=== PATIENT | female | born 1930 | race African-American/Black ===

== ENCOUNTER 2016-05-09 15:22 | Inpatient (IN) | payer MEDICARE ==
[~2016-05-09] VITALS: Ht 165.1 cm; Wt 68.1 kg
[2016-05-09] MEDS ORDERED: LABETALOL 20 MG/4 ML DISP.SYRIN. IVP ONE (15:45)
[2016-05-09] MEDS ORDERED: IV NORMAL SALINE 500ML BAG 500 ML IV ONE (15:45)
[2016-05-09] MEDS ORDERED: ACETAMINOPHEN 325 MG TABLET. PO ONE (15:45)
[2016-05-09] MEDS ORDERED: CEFTRIAXONE 1GM IVPB FOR OMNI 50 ML IV ONE (16:00)
--- NOTE | 2016-05-09 16:13 | PHYS DOC ---
Past Medical History Past Medical History: Anxiety, Cancer, Dementia, High Cholesterol, Hypertension , Hypothyroid, UTI, Other Additional Past Medical Histor: breast ca Past Surgical History: Cancer Surgery, Other Additional Past Surgical Histo: LUMPECTOMY. PT IS POOR HISTORIAN, PT SON UNSURE OF OTHER SURGERIES Alcohol Use: Sober Drug Use: Other Social History Narrative: UNKNOWN Adult General Chief Complaint Chief Complaint: MECHANICAL FALL HPI HPI 85-year-old female presenting to the emergency department today after the son called paramedics. He reports last talking with his mother approximately on Tuesday when she was oriented and speaking coherently. He was unable to get ahold of her on Tuesday however which is unusual. Paramedics were called to her house today where they found her on the ground in the living room. She is currently confused. She is unable to provide any further history. Onset 2 days Location generally Duration intermittent No alleviating factors. No specific timing. Review of Systems Review of Systems ROS negative for chest pain shortness of breath abdominal pain nausea or vomiting. All other review of systems is negative unless otherwise noted in history of present illness. Current Medications Current Medications Current Medications Medications (Trade) Dose Ordered Sig/Angela Start Time Stop Time Status Last Admin Dose Admin Acetaminophen 650 mg 650 mg 1X ONCE 05/09/16 15:45 05/09/16 15:46 DC 05/09/16 16:45 650 MG Ceftriaxone Sodium (Rocephin 1gm Ivpb For Omni) 50 ml @ 100 mls/hr 1X ONCE 05/09/16 16:00 05/09/16 16:29 DC 05/09/16 16:45 100 MLS/HR Labetalol HCl (Normodyne) 10 mg 1X ONCE 05/09/16 15:45 05/09/16 15:46 DC 05/09/16 16:45 10 MG Sodium Chloride (Iv Sodium Chloride 0.9% 500ml Bag) 500 ml @ 500 mls/hr 1X ONCE 05/09/16 15:45 05/09/16 16:44 DC 05/09/16 16:46 500 MLS/HR Allergies Allergies Allergies Coded Allergies Type Severity Reaction Last Updated Verified No Known Drug Allergies 05/09/16 No Physical Exam Physical Exam Patient is febrile and tachycardic with increased respiratory rate and hypertension. Constitutional: Well developed, well nourished, patient is breathing comfortably and resting comfortably in exam room. Not in any distress. HENT: Normocephalic, atraumatic, bilateral external ears normal, oropharynx moist, no oral exudates, nose normal. Negative Kernig sign. Negative Brudzinski's sign. Eyes: PERRLA, EOMI, conjunctiva normal, no discharge. [] Neck: Normal range of motion, no tenderness, supple, no stridor. No neck stiffness present. Cardiovascular:Heart rate regular rhythm, no murmur [] Lungs & Thorax: Bilateral breath sounds clear to auscultation Abdomen: Soft and nontender to palpation. Negative McBurney's point. Negative Cage sign. No rebound tenderness or guarding present. Nondistended. Skin: Warm, dry, no erythema, no rash. Back: No tenderness, no CVA tenderness. [] Extremities: No tenderness, no cyanosis, no clubbing, ROM intact, no edema. Neurologic: Alert and oriented to person. normal motor function, normal sensory function, no focal deficits noted. Psychologic: Affect normal, judgement normal, mood normal. [] Current Patient Data Vital Signs Vital Signs Date Time Temp Pulse Resp B/P Pulse Ox O2 Delivery O2 Flow Rate FiO2 05/09/16 16:45 109 209/81 05/09/16 16:30 39 94 05/09/16 15:28 102.2 Room Air 102.2 Lab Values Laboratory Tests Test 05/09/16 16:40 White Blood Count 8.2x10^3/uL (4.0-11.0) Red Blood Count 3.91x10^6/uL (3.50-5.40) Hemoglobin 11.8g/dL (12.0-15.5) L Hematocrit 35.6% (36.0-47.0) L Mean Corpuscular Volume 91fL (79-100) Mean Corpuscular Hemoglobin 30pg (25-35) Mean Corpuscular Hemoglobin Concent 33g/dL (31-37) Red Cell Distribution Width 14.4% (11.5-14.5) Platelet Count 199x10^3/uL (140-400) Neutrophils (%) (Auto) 87% (31-73) H Lymphocytes (%) (Auto) 4% (24-48) L Monocytes (%) (Auto) 8% (0-9) Eosinophils (%) (Auto) 0% (0-3) Basophils (%) (Auto) 0% (0-3) Neutrophils # (Auto) 7.2x10^3uL (1.8-7.7) Lymphocytes # (Auto) 0.3x10^3/uL (1.0-4.8) L Monocytes # (Auto) 0.7x10^3/uL (0.0-1.1) Eosinophils # (Auto) 0.0x10^3/uL (0.0-0.7) Basophils # (Auto) 0.0x10^3/uL (0.0-0.2) Segmented Neutrophils % 82% (35-66) H Band Neutrophils % 3% (0-9) Lymphocytes % 5% (24-48) L Monocytes % 10% (0-10) Toxic Granulation Slight Toxic Vacuolation Slight Platelet Estimate Adequate (ADEQUATE) Hypochromasia Slight Poikilocytosis Slight Anisocytosis Slight Sodium Level 131mmol/L (136-145) L Potassium Level 3.4mmol/L (3.5-5.1) L Chloride Level 92mmol/L (98-107) L Carbon Dioxide Level 30mmol/L (21-32) Anion Gap 9 (6-14) Blood Urea Nitrogen 8mg/dL (7-20) Creatinine 1.0mg/dL (0.6-1.0) Estimated GFR (Cockcroft-Gault) 63.9 Glucose Level 128mg/dL (70-99) H Lactic Acid Level 2.1mmol/L (0.4-2.0) H Calcium Level 9.1mg/dL (8.5-10.1) Total Bilirubin 0.9mg/dL (0.2-1.0) Direct Bilirubin 0.2mg/dL (0.0-0.2) Aspartate Amino Transferase (AST) 61U/L (15-37) H Alanine Aminotransferase (ALT) 30U/L (14-59) Alkaline Phosphatase 53U/L (46-116) Creatine Kinase 1636U/L (26-192) H Troponin I Quantitative 0.088ng/mL (0.000-0.055) UQ-Rld-W-Type Natriuretic Peptide 247pg/mL (0-449) Total Protein 8.6g/dL (6.4-8.2) H Albumin 4.2g/dL (3.4-5.0) Lipase 88U/L (73-393) Laboratory Tests 05/09/16 16:40 Laboratory Tests 05/09/16 16:40 EKG EKG [] EKG shows lots of artifact. Difficult to appreciate P-wave. Patient is tachycardic. [place] is within normal limits. ST segments are congruent. Radiology/Procedures Radiology/Procedures [] Chest x-ray unremarkable. Head neck CT unremarkable. Course & Med Decision Making Course & Med Decision Making Pertinent Labs and Imaging studies reviewed. (See chart for details) 85-year-old female presenting to the emergency department today after paramedics were called to her house by her son who is concerned for her. She was confused on evaluation with a fever and tachycardia with history of urinary tract infections. Initial presumption was confusion from urinary tract infection. IV fluids, acetaminophen, and antibiotics ordered. Blood cultures obtained. Antihypertensive medications ordered. Physical exam was otherwise unremarkable. Clinical exam not suggestive of meningitis. No neck stiffness. No petechiae on lower extremities. Labs mild anemia on CBC. White blood cell count within normal limits. Urinalysis not suggestive of infection. Positive for hematuria. Chemistry panel shows mild hypokalemia with an elevated creatinine kinase. Lactic acid elevated at 2. Troponin elevated at 0.08. They she was given aspirin in the emergency department along with IV fluid administration. IV labetalol given for hypertension. Acetaminophen for fever. The patient also received Rocephin, vancomycin and Zosyn. The patient was then admitted to our hospitalist team for further evaluation workup and care. Dragon Disclaimer Dragon Disclaimer This electronic medical record was generated, in whole or in part, using a voice recognition dictation system. Departure Departure Impression: Primary Impression: Severe sepsis Additional Impressions: Confusion Fever Tachycardia Disposition: ADMITTED INPATIENT Admitting Physician: Tres Patel Condition: IMPROVED Referrals: NO PCP (PCP) Problem Qualifiers MELY MINER MD May 09, 2016 16:13
--- NOTE | 2016-05-09 16:33 | RAD ---
One or more of the following individualized dose reduction techniques were utilized for this examination: 1. Automated exposure control 2. Adjustment of the mA and/or kV according to patient size 3. Use of iterative reconstruction technique CT brain without contrast, CT cervical spine without contrast. History: Fall today, poor historian CT scan of the brain was done without contrast. There is motion artifact. There is no intracranial hemorrhage or subdural hematoma. Ventricles are normal in size. There is no mass or shift of the midline. An acute CVA is not identified. A skull fracture is not identified. Sinuses are clear. Impression: 1. Motion artifact limits the study. 2. No intracranial hemorrhage or acute finding. End impression CT cervical spine Axial CT images were obtained through the cervical spine. A fracture is not identified. C-spine is in normal alignment. There is mild hypertrophic spurring. Odontoid is intact. Impression: 1. No acute fracture noted in the cervical spine.
--- NOTE | 2016-05-09 16:34 | RAD ---
AP chest. History: Fatigue AP view was taken of the chest. The thoracic aorta is mildly enlarged and tortuous. Heart is upper normal in size. There are no confluent areas of infiltrate. There is no pneumothorax or pleural effusion. Impression: 1. No acute chest disease.
--- NOTE | 2016-05-09 16:41 | EKG ---
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
[2016-05-09 16:49] LABS: BASO % 0 % (0-3); EOS % 0 % (0-3); HEMATOCRIT 35.6 % (36.0-47.0); HEMOGLOBIN 11.8 g/dL (12.0-15.5); LYMPH # 0.3 x10^3/uL (1.0-4.8); LYMPH % 4 % (24-48); MEAN CORPUSCULAR HEMOGLOBIN 30 pg (25-35); MEAN CORPUSCULAR HGB CONC 33 g/dL (31-37); MEAN CORPUSCULAR VOLUME 91 fL (79-100); MONO % 8 % (0-9); NEUT % 87 % (31-73); PLATELET COUNT 199 x10^3/uL (140-400); RED BLOOD COUNT 3.91 x10^6/uL (3.50-5.40); RED CELL DISTRIBUTION WIDTH 14.4 % (11.5-14.5); WHITE BLOOD COUNT 8.2 x10^3/uL (4.0-11.0)
[2016-05-09] MEDS ORDERED: IV NORMAL SALINE 500ML BAG 500 ML IV PRN (17:00)
[2016-05-09] MEDS ORDERED: ONDANSETRON PF 4 MG/2 ML VIAL. IV PRN (17:00)
[2016-05-09] MEDS ORDERED: MORPHINE SULFATE 2 MG/ML DISP.SYRIN. IV PRN (17:00)
[2016-05-09 17:02] LABS: CALCIUM 9.1 mg/dL (8.5-10.1); GFR 63.9; POTASSIUM 3.4 mmol/L (3.5-5.1)
[2016-05-09 17:07] LABS: ALBUMIN 4.2 g/dL (3.4-5.0); DIRECT BILIRUBIN 0.2 mg/dL (0.0-0.2); TOTAL BILIRUBIN 0.9 mg/dL (0.2-1.0); TOTAL PROTEIN 8.6 g/dL (6.4-8.2)
[2016-05-09 17:14] LABS: BILIRUBIN,URINE NEGATIVE (NEG); GLUCOSE,URINE NEGATIVE (NEG); NITRITE,URINE NEGATIVE (NEG); PH,URINE 6.5
[2016-05-09 17:26] LABS: BACTERIA,URINE FEW /HPF (0-FEW); PROTEIN,URINE TRACE mg/dL (NEG-TRACE); RBC,URINE 20-40 /HPF (0-2); SQUAMOUS EPITHELIAL CELL,UR FEW /LPF
[2016-05-09] MEDS: IV NORMAL SALINE 1000ML BAG 1,000 ML IV SCH ×3 (17:31→20:31)
[2016-05-09 18:11] LABS: ANISOCYTOSIS SLIGHT; HYPOCHROMIA SLIGHT; PLT ESTIMATE ADEQUATE (ADEQUATE); POIKILOCYTOSIS SLIGHT; TOXIC GRANULATION SLIGHT; TOXIC VACUOLATION SLIGHT
[2016-05-09] MEDS ORDERED: ASPIRIN 81 MG TAB.CHEW PO ONE (18:30)
[2016-05-09] MEDS ORDERED: PIP/TAZO PER PHARMACY MC PRN (19:00)
[2016-05-09] MEDS: VANCOMYCIN PER PHARMACY MC PRN ×2 (19:23→20:40)
[2016-05-09] MEDS ORDERED: VANCOMYCIN 1.75 GM in IV NORMAL SALINE 500ML BAG 500 ML IV ONE (19:30)
[2016-05-09] MEDS ORDERED: POTA99TA2 PO (22:06)
[2016-05-09] MEDS ORDERED: ATOR20TA58 PO (22:08)
[2016-05-09] MEDS ORDERED: ALPR0.5T6 PO (22:08)
[2016-05-09] MEDS ORDERED: LEVO50TA5 PO (22:08)
[2016-05-09] MEDS ORDERED: DONE5TAB33 PO (22:08)
[2016-05-09] MEDS ORDERED: LISI1TAB5 PO (22:08)
[2016-05-09] MEDS: PIPERACILLIN/TAZOBACTAM 3.375 GM in IV NORMAL SALINE 50ML 50 ML IV SCH (22:43)
[2016-05-09] MEDS ORDERED: ATORVASTATIN CALCIUM 20 MG TABLET PO SCH (23:00)
[2016-05-09] MEDS ORDERED: ALPRAZOLAM 0.5 MG TABLET PO SCH (23:00)
[2016-05-09] MEDS ORDERED: DONEPEZIL HCL 5 MG TABLET. PO SCH (23:00)
[2016-05-09 23:20] VITALS: BP 132/76
[2016-05-10 03:40] VITALS: BP 151/70
[2016-05-10 04:53] LABS: BASO % 0 % (0-3); EOS % 0 % (0-3); HEMATOCRIT 33.4 % (36.0-47.0); HEMOGLOBIN 10.9 g/dL (12.0-15.5); LYMPH # 0.4 x10^3/uL (1.0-4.8); LYMPH % 9 % (24-48); MEAN CORPUSCULAR HEMOGLOBIN 30 pg (25-35); MEAN CORPUSCULAR HGB CONC 33 g/dL (31-37); MEAN CORPUSCULAR VOLUME 91 fL (79-100); MONO % 11 % (0-9); NEUT % 80 % (31-73); PLATELET COUNT 188 x10^3/uL (140-400); RED BLOOD COUNT 3.67 x10^6/uL (3.50-5.40); RED CELL DISTRIBUTION WIDTH 14.2 % (11.5-14.5); WHITE BLOOD COUNT 4.9 x10^3/uL (4.0-11.0)
[2016-05-10 05:23] LABS: CALCIUM 7.9 mg/dL (8.5-10.1); CREATININE 0.9 mg/dL (0.6-1.0); GFR 72.2
[2016-05-10] MEDS: PIPERACILLIN/TAZOBACTAM 3.375 GM in IV NORMAL SALINE 50ML 50 ML IV SCH ×3 (06:00→18:00)
[2016-05-10] MEDS ORDERED: LEVOTHYROXINE 50 MCG TABLET PO SCH (07:00)
[2016-05-10 07:25] VITALS: BP 119/63
[2016-05-10] MEDS: LISINOPRIL 20 MG TABLET PO SCH (09:07)
[2016-05-10] MEDS: HYDROCHLOROTHIAZIDE 12.5 MG CAPSULE. PO SCH (09:08)
[2016-05-10 10:49] VITALS: BP 130/67
[2016-05-10 13:43] LABS: OBC FLU VALID
[2016-05-10] MEDS ORDERED: POTASSIUM CHLORIDE 20 MEQ TABLET.ER. PO ONE (14:45)
[2016-05-10] MEDS: VANCOMYCIN PER PHARMACY MC PRN (14:45)
[2016-05-10] MEDS: LEVOTHYROXINE 50 MCG TABLET PO SCH (15:00)
--- NOTE | 2016-05-10 15:21 | PDOC2 ---
CARDIAC CONSULT DATE OF CONSULT Date of Consult DATE: 05/10/16 TIME: 15:21 REASON FOR CONSULT Reason for Consult: high troponin likely due to muscle damage REFERRING PHYSICIAN Referring Physician: Dr. Tres Patel SOURCE Source: Caregiver (son), Chart review, Patient (who is a poor historian) HISTORY OF PRESENT ILLNESS HISTORY OF PRESENT ILLNESS 85 year old female admitted through the ER after being found down for unknown duration. Reportedly oriented on Tuesday and presented to ER confused. Initial troponin was 0.088 with CK of 1636 and NT-proBNP of 247. Presented with hypokalemia @ 3.4 and then 3.0 earlier today. Patient denies chest pain, dyspnea , palpitations, dizziness or lightheadedness. EKG with ST and poor baseline; no clear acute changes. Reason for Visit: elevated troponin PAST MEDICAL HISTORY Cardiovascular: HTN, [place] (30 years ago), Hyperlipidemia CENTRAL NERVOUS SYSTEM: Dementia Heme/Onc: Cancer (breast; with lumpectomy) Psych: Anxiety Endocrine: Hypothyroidism PAST SURGICAL HISTORY Past Surgical History: Other (lumpectomy; otherwise unknown) FAMILY HISTORY Family History: Family History Unknown SOCIAL HISTORY Smoke: No ALCOHOL: none Drugs: None Lives: Alone CURRENT MEDICATIONS CURRENT MEDICATIONS Current Medications Medications (Trade) Dose Ordered Sig/Angela Route PRN Reason Start Time Stop Time Status Last Admin Dose Admin Sodium Chloride (Iv Sodium Chloride 0.9% 500ml Bag) 500 ml @ 500 mls/hr 1X ONCE IV 05/09/16 15:45 05/09/16 16:44 DC 05/09/16 16:46 Labetalol HCl (Normodyne) 10 mg 1X ONCE IVP 05/09/16 15:45 05/09/16 15:46 DC 05/09/16 16:45 Acetaminophen 650 mg 650 mg 1X ONCE PO 05/09/16 15:45 05/09/16 15:46 DC 05/09/16 16:45 Ceftriaxone Sodium 50 ml @ 100 mls/hr 1X ONCE IV 05/09/16 16:00 05/09/16 16:29 DC 05/09/16 16:45 Sodium Chloride (Iv Sodium Chloride 0.9% 1000ml Bag) 1,000 ml @ 547.5 mls/ hr Q1H50M IV 05/09/16 16:51 05/09/16 20:51 DC 05/09/16 17:31 Vancomycin HCl (Vanco Per Pharmacy) 1 each PRN DAILY PRN MC SEE COMMENTS 05/09/16 19:00 05/10/16 14:45 Piperacillin Sod/ Tazobactam Sod 1 each 1 each PRN DAILY PRN MC SEE COMMENTS 05/09/16 19:00 05/09/16 20:07 Vancomycin HCl 1.75 gm/Sodium Chloride 500 ml @ 250 mls/hr 1X ONCE IV 05/09/16 19:30 05/09/16 21:29 DC 05/09/16 20:07 Piperacillin Sod/ Tazobactam Sod/ Sodium Chloride (Zosyn/Iv Sodium Chloride 0.9% 50ml) 50 ml @ 100 mls/hr Q6HRS IV 05/09/16 22:00 05/10/16 12:47 Levothyroxine Sodium (Synthroid) 50 mcg DAILY07 PO 05/10/16 07:00 05/10/16 14:35 DC 05/10/16 06:00 Lisinopril (Prinivil) 20 mg DAILY PO 05/10/16 09:00 05/10/16 09:07 Hydrochlorothiazide (Microzide) 12.5 mg DAILY PO 05/10/16 09:00 05/10/16 09:08 ALLERGIES ALLERGIES: Coded Allergies: No Known Drug Allergies (Unverified , 05/09/16) ROS General: No: Appetite, Chills, Fatigue, Malaise, Night Sweats, Other PSYCHOLOGICAL ROS: YES: Anxiety Eyes: No Blurry vision, No Decreased vision, No Double vision, No Dry eyes, No Excessive tearing, No Eye Pain, No Itchy Eyes, No Loss of vision, No Other, No Photophobia, No Scotomata, No Uses contacts, No Uses glasses HEENT: No: Epistaxis, Heacaches, Hearing change, Nasal congestion, Nasal discharge, Oral lesions, Other, Sinus pain, Sneezing, Snoring, Sore Throat, Tinnitus, Vertigo, Visual Changes, Vocal changes ALLERGY AND IMMUNOLOGY: No: Hives, Insect Bite Sensitivity, Itchy/Watery Eyes, Nasal Congestion, Other, Post Nasal Drip, Seasonal Allergies Hematological and Lymphatic: No: Bleeding Problems, Blood Clots, Blood Transfusions, Brusing, Night Sweats, Other, Pallor, Swollen Lymph Nodes ENDOCRINE: No: Breast Changes, Galactorrhea, Hair Pattern Changes, Hot Flashes , Malaise/lethargy, Mood Swings, Other, Palpitations, Polydipsia/polyuria, Skin Changes, Temperature Intolerance, Unexpected Weight Changes Respiratory: No: Cough, Hemoptysis, Orthopnea, Other, Pleuritic Pain, SOB with excertion, Shortness of breath, Sputum Changes, Stridor, Tachypnea, Wheezing Cardiovascular: No Chest Pain, No Edema, No Lt Headedness, No Orthopnea, No Other, No Palpitations, No Paroxysmal Noc. Dyspnea Gastrointestinal: No Abdominal Pain, No Constipation, No Diarrhea, No Hematochezia, No Melena, No Nausea, No Other, No Vomiting Genitourinary: No Discharge, No Dysuria, No Flank Pain, No Frequency, No Hematuria, No Incontinence, No Other, No Pain, No Retention, No Urgency Musculoskeletal: No Gait Disturbance, No Joint Pain, No Joint Stiffness, No Joint Swelling, No Muscle Pain, No Muscular Weakness, No Other, No Pain In:, No Swelling In: Neurological: No Behavorial Changes, No Bowel/Bladder ControlChng, No Confusion , No Dizziness, No Gait Disturbance, No Headaches, No Impaired Coord/balance, No Memory Loss, No Numbness/Tingling, No Other, No Seizures, No Speech Problems , No Tremors, No Visual Changes, No Weakness Skin: No Acne, No Dry Skin, No Eczema, No Hair Changes, No Lumps, No Mole Changes, No Mottling, No Nail Changes, No Other, No Pruritus, No Rash, No Skin Lesion Changes PHYSICAL EXAM General: Alert, Cooperative, No acute distress HEENT: Atraumatic, PERRLA Lungs: Clear to auscultation Heart: Regular rate, Normal S1, Normal S2, No murmurs, Other (no carotid bruits ) Abdomen: Normal bowel sounds, Soft, No tenderness Extremities: No edema, Normal pulses Skin: No rashes Neuro: Normal speech Psych/Mental Status: Mental status NL, Mood NL MUSCULOSKELETAL: Osteoarthritic changes both hands VITALS VITALS Vital Signs Date Time Temp Pulse Resp B/P Pulse Ox O2 Delivery O2 Flow Rate FiO2 05/10/16 10:49 99.0 86 18 130/67 95 Room Air 99.0 LABS Lab: Laboratory Tests Test 05/09/16 16:40 05/09/16 16:59 05/09/16 19:55 05/10/16 03:56 White Blood Count 8.2x10^3/uL (4.0-11.0) 4.9x10^3/uL (4.0-11.0) Red Blood Count 3.91x10^6/uL (3.50-5.40) 3.67x10^6/uL (3.50-5.40) Hemoglobin 11.8g/dL (12.0-15.5) 10.9g/dL (12.0-15.5) Hematocrit 35.6% (36.0-47.0) 33.4% (36.0-47.0) Mean Corpuscular Volume 91fL (79-100) 91fL (79-100) Mean Corpuscular Hemoglobin 30pg (25-35) 30pg (25-35) Mean Corpuscular Hemoglobin Concent 33g/dL (31-37) 33g/dL (31-37) Red Cell Distribution Width 14.4% (11.5-14.5) 14.2% (11.5-14.5) Platelet Count 199x10^3/uL (140-400) 188x10^3/uL (140-400) Neutrophils (%) (Auto) 87% (31-73) 80% (31-73) Lymphocytes (%) (Auto) 4% (24-48) 9% (24-48) Monocytes (%) (Auto) 8% (0-9) 11% (0-9) Eosinophils (%) (Auto) 0% (0-3) 0% (0-3) Basophils (%) (Auto) 0% (0-3) 0% (0-3) Neutrophils # (Auto) 7.2x10^3uL (1.8-7.7) 3.9x10^3uL (1.8-7.7) Lymphocytes # (Auto) 0.3x10^3/uL (1.0-4.8) 0.4x10^3/uL (1.0-4.8) Monocytes # (Auto) 0.7x10^3/uL (0.0-1.1) 0.5x10^3/uL (0.0-1.1) Eosinophils # (Auto) 0.0x10^3/uL (0.0-0.7) 0.0x10^3/uL (0.0-0.7) Basophils # (Auto) 0.0x10^3/uL (0.0-0.2) 0.0x10^3/uL (0.0-0.2) Segmented Neutrophils % 82% (35-66) Band Neutrophils % 3% (0-9) Lymphocytes % 5% (24-48) Monocytes % 10% (0-10) Toxic Granulation Slight Toxic Vacuolation Slight Platelet Estimate Adequate (ADEQUATE) Hypochromasia Slight Poikilocytosis Slight Anisocytosis Slight Sodium Level 131mmol/L (136-145) 134mmol/L (136-145) Potassium Level 3.4mmol/L (3.5-5.1) 3.0mmol/L (3.5-5.1) Chloride Level 92mmol/L (98-107) 98mmol/L (98-107) Carbon Dioxide Level 30mmol/L (21-32) 28mmol/L (21-32) Anion Gap 9 (6-14) 8 (6-14) Blood Urea Nitrogen 8mg/dL (7-20) 7mg/dL (7-20) Creatinine 1.0mg/dL (0.6-1.0) 0.9mg/dL (0.6-1.0) Estimated GFR (Cockcroft-Gault) 63.9 72.2 Glucose Level 128mg/dL (70-99) 112mg/dL (70-99) Lactic Acid Level 2.1mmol/L (0.4-2.0) 1.3mmol/L (0.4-2.0) Calcium Level 9.1mg/dL (8.5-10.1) 7.9mg/dL (8.5-10.1) Total Bilirubin 0.9mg/dL (0.2-1.0) Direct Bilirubin 0.2mg/dL (0.0-0.2) Aspartate Amino Transf (AST/SGOT) 61U/L (15-37) Alanine Aminotransferase (ALT/SGPT) 30U/L (14-59) Alkaline Phosphatase 53U/L (46-116) Creatine Kinase 1636U/L (26-192) Troponin I Quantitative 0.088ng/mL (0.000-0.055) CE-Amx-K-Type Natriuretic Peptide 247pg/mL (0-449) Total Protein 8.6g/dL (6.4-8.2) Albumin 4.2g/dL (3.4-5.0) Lipase 88U/L (73-393) Urine Collection Type U cath Urine Color Yellow Urine Clarity Cloudy Urine pH 6.5 Urine Specific [place] 1.020 Urine Protein Tracemg/dL (NEG-TRACE) Urine Glucose (UA) Negativemg/dL (NEG) Urine Ketones (Stick) 15mg/dL (NEG) Urine Blood Large (NEG) Urine Nitrite Negative (NEG) Urine Bilirubin Negative (NEG) Urine Urobilinogen Dipstick 1.0mg/dL (0.2 mg/dL) Urine Leukocyte Esterase Negative (NEG) Urine RBC 20-40/HPF (0-2) Urine WBC 5-10/HPF (0-4) Urine Squamous Epithelial Cells Few/LPF Urine Bacteria Few/HPF (0-FEW) Urine Hyaline Casts Moderate/HPF Urine Mucus Marked/LPF Test 05/10/16 12:55 Influenza Type A Antigen Positive (NEGATIVE) Influenza Type B Antigen Negative (NEGATIVE) IMAGES IMAGES CXR: AP view was taken of the chest. The thoracic aorta is mildly enlarged and tortuous. Heart is upper normal in size. There are no confluent areas of infiltrate. There is no pneumothorax or pleural effusion. Impression: 1. No acute chest disease. EKG EKG no acute changes; ST; poor baseline due to artifact ASSESSMENT/PLAN ASSESSMENT/PLAN 1. elevated troponin and CK level ? due to lying on floor for prolonged period will obtain serial enzymes and check myoglobin - remote history of [place] 30 years ago - ischemic heart disease remains a possible etiology echo to evaluate LV function and assess for WMA 2. fall vs syncope orthostatic measurements to evaluate 3. UTI/sepsis per primary service 4. influenza positive 5. HTN continue home meds 6. HLD continue home statin therapy 7. dementia per primary service Problems: KEENAN BAUTISTA OPTOMETRIC ASSISTANT May 10, 2016 15:21
[2016-05-10 15:26] VITALS: BP 151/78
[2016-05-10] MEDS: OSELTAMIVIR 30 MG CAPSULE PO SCH ×2 (15:49→21:10)
[2016-05-10] MEDS: POTASSIUM CL 20MEQ D5-0.45NACL 1,000 ML IV SCH (15:51)
[2016-05-10] MEDS: ACETAMINOPHEN 500 MG TABLET PO PRN (16:01)
--- NOTE | 2016-05-10 16:09 | PDOC ---
OBJECTIVE Vital Signs Vital Signs Date Time Temp Pulse Resp B/P Pulse Ox O2 Delivery O2 Flow Rate FiO2 05/10/16 15:26 101.0 92 18 151/78 94 Room Air 101.0 05/10/16 10:49 99.0 86 18 130/67 95 Room Air 99.0 05/10/16 09:07 87 119/63 05/10/16 08:08 Room Air 05/10/16 07:25 99.2 87 18 119/63 93 Room Air 99.2 05/10/16 03:40 98.8 94 22 151/70 95 Room Air 98.8 05/09/16 23:20 99.3 99 22 132/76 93 Room Air 99.3 05/09/16 19:30 Room Air 05/09/16 17:30 98 29 153/69 93 05/09/16 17:00 102 35 170/81 96 05/09/16 16:45 109 209/81 05/09/16 16:30 110 39 209/81 94 I & O Intake and Output 05/10/16 07:00 Intake Total 1323.8 ml Balance 1323.8 ml Intake Oral 200 ml IV Total 1123.8 ml # Voids 1 # Bowel Movements 1 ASSESSMENT/PLAN Assessment/Plan [id number] H&P dictated Problems: COMMENT Lab Laboratory Tests Test 05/09/16 16:40 05/09/16 16:59 05/09/16 19:55 05/10/16 03:56 White Blood Count 8.2x10^3/uL (4.0-11.0) 4.9x10^3/uL (4.0-11.0) Red Blood Count 3.91x10^6/uL (3.50-5.40) 3.67x10^6/uL (3.50-5.40) Hemoglobin 11.8g/dL (12.0-15.5) 10.9g/dL (12.0-15.5) Hematocrit 35.6% (36.0-47.0) 33.4% (36.0-47.0) Mean Corpuscular Volume 91fL (79-100) 91fL (79-100) Mean Corpuscular Hemoglobin 30pg (25-35) 30pg (25-35) Mean Corpuscular Hemoglobin Concent 33g/dL (31-37) 33g/dL (31-37) Red Cell Distribution Width 14.4% (11.5-14.5) 14.2% (11.5-14.5) Platelet Count 199x10^3/uL (140-400) 188x10^3/uL (140-400) Neutrophils (%) (Auto) 87% (31-73) 80% (31-73) Lymphocytes (%) (Auto) 4% (24-48) 9% (24-48) Monocytes (%) (Auto) 8% (0-9) 11% (0-9) Eosinophils (%) (Auto) 0% (0-3) 0% (0-3) Basophils (%) (Auto) 0% (0-3) 0% (0-3) Neutrophils # (Auto) 7.2x10^3uL (1.8-7.7) 3.9x10^3uL (1.8-7.7) Lymphocytes # (Auto) 0.3x10^3/uL (1.0-4.8) 0.4x10^3/uL (1.0-4.8) Monocytes # (Auto) 0.7x10^3/uL (0.0-1.1) 0.5x10^3/uL (0.0-1.1) Eosinophils # (Auto) 0.0x10^3/uL (0.0-0.7) 0.0x10^3/uL (0.0-0.7) Basophils # (Auto) 0.0x10^3/uL (0.0-0.2) 0.0x10^3/uL (0.0-0.2) Segmented Neutrophils % 82% (35-66) Band Neutrophils % 3% (0-9) Lymphocytes % 5% (24-48) Monocytes % 10% (0-10) Toxic Granulation Slight Toxic Vacuolation Slight Platelet Estimate Adequate (ADEQUATE) Hypochromasia Slight Poikilocytosis Slight Anisocytosis Slight Sodium Level 131mmol/L (136-145) 134mmol/L (136-145) Potassium Level 3.4mmol/L (3.5-5.1) 3.0mmol/L (3.5-5.1) Chloride Level 92mmol/L (98-107) 98mmol/L (98-107) Carbon Dioxide Level 30mmol/L (21-32) 28mmol/L (21-32) Anion Gap 9 (6-14) 8 (6-14) Blood Urea Nitrogen 8mg/dL (7-20) 7mg/dL (7-20) Creatinine 1.0mg/dL (0.6-1.0) 0.9mg/dL (0.6-1.0) Estimated GFR (Cockcroft-Gault) 63.9 72.2 Glucose Level 128mg/dL (70-99) 112mg/dL (70-99) Lactic Acid Level 2.1mmol/L (0.4-2.0) 1.3mmol/L (0.4-2.0) Calcium Level 9.1mg/dL (8.5-10.1) 7.9mg/dL (8.5-10.1) Total Bilirubin 0.9mg/dL (0.2-1.0) Direct Bilirubin 0.2mg/dL (0.0-0.2) Aspartate Amino Transf (AST/SGOT) 61U/L (15-37) Alanine Aminotransferase (ALT/SGPT) 30U/L (14-59) Alkaline Phosphatase 53U/L (46-116) Creatine Kinase 1636U/L (26-192) Troponin I Quantitative 0.088ng/mL (0.000-0.055) LP-Xby-M-Type Natriuretic Peptide 247pg/mL (0-449) Total Protein 8.6g/dL (6.4-8.2) Albumin 4.2g/dL (3.4-5.0) Lipase 88U/L (73-393) Urine Collection Type U cath Urine Color Yellow Urine Clarity Cloudy Urine pH 6.5 Urine Specific [place] 1.020 Urine Protein Tracemg/dL (NEG-TRACE) Urine Glucose (UA) Negativemg/dL (NEG) Urine Ketones (Stick) 15mg/dL (NEG) Urine Blood Large (NEG) Urine Nitrite Negative (NEG) Urine Bilirubin Negative (NEG) Urine Urobilinogen Dipstick 1.0mg/dL (0.2 mg/dL) Urine Leukocyte Esterase Negative (NEG) Urine RBC 20-40/HPF (0-2) Urine WBC 5-10/HPF (0-4) Urine Squamous Epithelial Cells Few/LPF Urine Bacteria Few/HPF (0-FEW) Urine Hyaline Casts Moderate/HPF Urine Mucus Marked/LPF Test 05/10/16 12:55 Influenza Type A Antigen Positive (NEGATIVE) Influenza Type B Antigen Negative (NEGATIVE) COLTON ACEVES MD May 10, 2016 16:09
[2016-05-10 16:51] LABS: MAGNESIUM 1.5 mg/dL (1.8-2.4)
[2016-05-10 19:45] VITALS: BP 122/69
[2016-05-10] MEDS ORDERED: DONEPEZIL HCL 5 MG TABLET. PO SCH (21:00)
[2016-05-10] MEDS ORDERED: ATORVASTATIN CALCIUM 20 MG TABLET PO SCH (21:00)
[2016-05-10] MEDS ORDERED: ALPRAZOLAM 0.5 MG TABLET PO SCH (21:00)
[2016-05-10] MEDS: VANCOMYCIN 1 GM in IV NORMAL SALINE 250ML 250 ML IV SCH (21:09)
[2016-05-10] MEDS: ALPRAZOLAM 0.5 MG TABLET PO SCH (21:10)
[2016-05-10] MEDS: ATORVASTATIN CALCIUM 20 MG TABLET PO SCH (21:10)
[2016-05-10] MEDS: DONEPEZIL HCL 5 MG TABLET. PO SCH (21:10)
[2016-05-10 23:35] VITALS: BP 141/75
[2016-05-11] MEDS: PIPERACILLIN/TAZOBACTAM 3.375 GM in IV NORMAL SALINE 50ML 50 ML IV SCH ×5 (00:04→23:46)
--- NOTE | 2016-05-11 01:50 | HP ---
ADMIT DATE: HISTORY OF PRESENT ILLNESS: The patient is an 85-year-old lady who presented to the Emergency Room when she was found on the floor after her son tried to contact her and was not able to contact her on Tuesday morning. He stated that he made a normal contact with her on Tuesday. The EMS were called and she was brought to the Emergency Room. She was on the ground in the living room and was confused. Her body temperature was low and she was not able to provide more history on her presentation. PAST MEDICAL HISTORY: Significant for Alzheimer's disease, dementia, hyperlipidemia, hypertension, history of benign breast lumps removed, previous history of UTI, osteoarthritis, hypothyroidism, anxiety. She also has had a history of breast cancer and previous history of lumpectomy. REVIEW OF SYSTEMS: She denies weight loss. Her body temperature was low upon her presentation to the Emergency Room. She denies abdominal pain, nausea, vomiting, diarrhea. She stated that she has not been feeling good and was rather poor historian upon her presentation. ALLERGIES: She has no known drug allergies. PHYSICAL EXAMINATION: GENERAL: She is alert and oriented, mildly tachycardic with increased respiratory rate and hypertension. CONSTITUTIONAL: She is in no acute distress. HEENT: Atraumatic. Pharynx is clear. Mucous membranes are dry. EYES: Without icterus or discharge. NECK: Supple. HEART: Mildly tachycardic. LUNGS: Fairly clear. ABDOMEN: Soft and nontender. SKIN: Warm and dry. BACK: She has no flank tenderness. EXTREMITIES: Without edema. NEUROLOGIC: She was alert, but slightly confused. No focal deficit was noted. IMPRESSION: 1. Sepsis, probably due to urinary tract infection. 2. Flu. 3. Confusion and metabolic encephalopathy due to infection. 4. Rhabdomyolysis due to fall and elevated CK. The patient will be hydrated. 5. Hypokalemia. 6. Fever and tachycardia. 7. Hyperlipidemia and hypertension. 8. Previous history of breast cancer. 9. Degenerative joint disease. 10. Hypothyroidism. PLAN: The patient is admitted, started on sepsis protocol, broad spectrum antibiotics. When her flu came back positive, she was also started on Tamiflu. Continue supportive treatment. COLTON ACEVES MD DR: BRYAN/marina JOB#: [id number] / [id number]
[2016-05-11 03:45] VITALS: BP 131/74
[2016-05-11 04:50] LABS: HEMATOCRIT 30.7 % (36.0-47.0); HEMOGLOBIN 10.1 g/dL (12.0-15.5); RED BLOOD COUNT 3.38 x10^6/uL (3.50-5.40); RED CELL DISTRIBUTION WIDTH 14.5 % (11.5-14.5); WHITE BLOOD COUNT 3.3 x10^3/uL (4.0-11.0)
[2016-05-11 05:03] LABS: ALBUMIN 2.9 g/dL (3.4-5.0); ALBUMIN/GLOBULIN RATIO 0.9 (1.0-1.7); CALCIUM 7.5 mg/dL (8.5-10.1); CREATININE 0.8 mg/dL (0.6-1.0); GFR 82.7; TOTAL BILIRUBIN 0.6 mg/dL (0.2-1.0)
[2016-05-11 05:32] LABS: CHOLESTEROL/HDL RATIO 1.9
[2016-05-11] MEDS: POTASSIUM CL 20MEQ D5-0.45NACL 1,000 ML IV SCH ×2 (05:50→22:46)
[2016-05-11] MEDS: LEVOTHYROXINE 50 MCG TABLET PO SCH (05:53)
[2016-05-11 07:50] VITALS: BP_SYST 113; BP_SYST 140; BP_SYST 148; BP_DIAS 67; BP_DIAS 82; BP_DIAS 91
[2016-05-11] MEDS: HYDROCHLOROTHIAZIDE 12.5 MG CAPSULE. PO SCH (08:59)
[2016-05-11] MEDS: OSELTAMIVIR 30 MG CAPSULE PO SCH ×2 (08:59→20:51)
[2016-05-11] MEDS: LISINOPRIL 20 MG TABLET PO SCH (08:59)
[2016-05-11] MEDS ORDERED: NON FORMULARY ITEM (Lisinopril/Hydrochlorothiazide (Lisinopril-Hctz 20-12.5 Mg Tab) 1 TAB) PO SCH (09:00)
[2016-05-11] MEDS ORDERED: NON FORMULARY ITEM (Potassium Gluconate 99 MG) PO SCH (09:00)
--- NOTE | 2016-05-11 09:06 | PDOC ---
SUBJECTIVE Subjective She does feel much better today, her appetite better she is pleasant and does not appear to be in any distress OBJECTIVE Objective Her temperature is trending down and her vital signs are stable Vital Signs Vital Signs Date Time Temp Pulse Resp B/P Pulse Ox O2 Delivery O2 Flow Rate FiO2 05/11/16 08:59 92 113/67 05/11/16 07:50 99.0 92 20 140/91 93 Room Air 99.0 148/82 113/67 05/11/16 07:45 Room Air 05/11/16 03:45 99.2 80 18 131/74 92 Room Air 99.2 05/10/16 23:35 100.4 81 20 141/75 93 Room Air 100.4 05/10/16 20:00 Room Air 05/10/16 19:45 100.6 60 22 122/69 96 Room Air 100.6 05/10/16 15:26 101.0 92 18 151/78 94 Room Air 101.0 05/10/16 10:49 99.0 86 18 130/67 95 Room Air 99.0 05/10/16 09:07 87 119/63 I & O Intake and Output 05/11/16 07:00 Intake Total 2650 ml Balance 2650 ml Intake Oral 1100 ml IV Total 1550 ml # Voids 2 PHYSICAL EXAM Physical Exam Lungs are clear Heart is regular rate and regular rhythm Abdomen soft and nontender with no organomegaly Extremities with trace edema ASSESSMENT/PLAN Assessment/Plan 1. Sepsis, probably due to urinary tract infection continue Rocephin IV awaiting cultures 2. Flu. She is on medication 3. Confusion and metabolic encephalopathy due to infection. This is improving 4. Rhabdomyolysis due to fall and elevated CK. The patient is being hydrated slowly and carefully, her CK continue to be elevated 5. Hypokalemia. Replacing 6. Fever and tachycardia. Improving 7. Hyperlipidemia and hypertension. 8. Previous history of breast cancer. 9. Degenerative joint disease. 10. Hypothyroidism. Continue supportive therapy, antibiotic, Tamiflu Problems: COMMENT Lab Laboratory Tests Test 05/10/16 12:55 05/10/16 16:05 05/10/16 22:40 05/11/16 04:00 Influenza Type A Antigen Positive (NEGATIVE) Influenza Type B Antigen Negative (NEGATIVE) Troponin I Quantitative 0.116ng/mL (0.000-0.055) 0.131ng/mL (0.000-0.055) Creatine Kinase 2521U/L (26-192) Test 05/11/16 04:05 White Blood Count 3.3x10^3/uL (4.0-11.0) Red Blood Count 3.38x10^6/uL (3.50-5.40) Hemoglobin 10.1g/dL (12.0-15.5) Hematocrit 30.7% (36.0-47.0) Mean Corpuscular Volume 91fL (79-100) Mean Corpuscular Hemoglobin 30pg (25-35) Mean Corpuscular Hemoglobin Concent 33g/dL (31-37) Red Cell Distribution Width 14.5% (11.5-14.5) Platelet Count 165x10^3/uL (140-400) Sodium Level 134mmol/L (136-145) Potassium Level 3.0mmol/L (3.5-5.1) Chloride Level 98mmol/L (98-107) Carbon Dioxide Level 27mmol/L (21-32) Anion Gap 9 (6-14) Blood Urea Nitrogen 7mg/dL (7-20) Creatinine 0.8mg/dL (0.6-1.0) Estimated GFR (Cockcroft-Gault) 82.7 BUN/Creatinine Ratio 9 (6-20) Glucose Level 117mg/dL (70-99) Calcium Level 7.5mg/dL (8.5-10.1) Total Bilirubin 0.6mg/dL (0.2-1.0) Aspartate Amino Transf (AST/SGOT) 102U/L (15-37) Alanine Aminotransferase (ALT/SGPT) 34U/L (14-59) Alkaline Phosphatase 27U/L (46-116) Total Protein 6.0g/dL (6.4-8.2) Albumin 2.9g/dL (3.4-5.0) Albumin/Globulin Ratio 0.9 (1.0-1.7) Triglycerides Level 38mg/dL (0-150) Cholesterol Level 100mg/dL (0-200) LDL Cholesterol, Calculated 39mg/dL (0-100) VLDL Cholesterol, Calculated 8mg/dL (0-40) HDL Cholesterol 53mg/dL (40-60) Cholesterol/HDL Ratio 1.9 COLTON ACEVES MD May 11, 2016 09:06
[2016-05-11] MEDS ORDERED: MAGNESIUM SULFATE 4GM 100 ML IV ONE (10:30)
[2016-05-11 10:39] VITALS: BP 167/80
--- NOTE | 2016-05-11 12:15 | PDOC ---
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 05/11/16 1215: CARDIO Progress Notes Date and Time Date of Service 05/11/2016 Time of Evaluation 1207 Subjective Subjective: No Chest Pain, No shortness of breath, No Palpitations, No Dizziness Comments: ask to re-eval pt by nursing due to low K and Mg Vitals Vitals Vital Signs Date Time Temp Pulse Resp B/P Pulse Ox O2 Delivery O2 Flow Rate FiO2 05/11/16 10:39 99.0 93 18 167/80 93 Room Air 99.0 Weight Weight [ ] Input and Output Intake and Output Intake and Output 05/11/16 07:00 Intake Total 2650 ml Balance 2650 ml Intake Oral 1100 ml IV Total 1550 ml # Voids 2 Laboratory Labs Laboratory Tests Test 05/10/16 12:55 05/10/16 16:05 05/10/16 22:40 05/11/16 04:00 Influenza Type A Antigen Positive (NEGATIVE) Influenza Type B Antigen Negative (NEGATIVE) Troponin I Quantitative 0.116ng/mL (0.000-0.055) 0.131ng/mL (0.000-0.055) Creatine Kinase 2521U/L (26-192) Test 05/11/16 04:05 White Blood Count 3.3x10^3/uL (4.0-11.0) Red Blood Count 3.38x10^6/uL (3.50-5.40) Hemoglobin 10.1g/dL (12.0-15.5) Hematocrit 30.7% (36.0-47.0) Mean Corpuscular Volume 91fL (79-100) Mean Corpuscular Hemoglobin 30pg (25-35) Mean Corpuscular Hemoglobin Concent 33g/dL (31-37) Red Cell Distribution Width 14.5% (11.5-14.5) Platelet Count 165x10^3/uL (140-400) Sodium Level 134mmol/L (136-145) Potassium Level 3.0mmol/L (3.5-5.1) Chloride Level 98mmol/L (98-107) Carbon Dioxide Level 27mmol/L (21-32) Anion Gap 9 (6-14) Blood Urea Nitrogen 7mg/dL (7-20) Creatinine 0.8mg/dL (0.6-1.0) Estimated GFR (Cockcroft-Gault) 82.7 BUN/Creatinine Ratio 9 (6-20) Glucose Level 117mg/dL (70-99) Calcium Level 7.5mg/dL (8.5-10.1) Total Bilirubin 0.6mg/dL (0.2-1.0) Aspartate Amino Transf (AST/SGOT) 102U/L (15-37) Alanine Aminotransferase (ALT/SGPT) 34U/L (14-59) Alkaline Phosphatase 27U/L (46-116) Total Protein 6.0g/dL (6.4-8.2) Albumin 2.9g/dL (3.4-5.0) Albumin/Globulin Ratio 0.9 (1.0-1.7) Triglycerides Level 38mg/dL (0-150) Cholesterol Level 100mg/dL (0-200) LDL Cholesterol, Calculated 39mg/dL (0-100) VLDL Cholesterol, Calculated 8mg/dL (0-40) HDL Cholesterol 53mg/dL (40-60) Cholesterol/HDL Ratio 1.9 Microbiology Micro Microbiology 05/09/16 Blood Culture - Preliminary, Resulted NO GROWTH AFTER 1 DAY 05/09/16 Urine Culture - Final, Complete 05/09/16 Urine Culture Result 1 ([place]) - Final, Complete Physical Exam HEENT: Neck Supple W Full Motion Chest: Symmetric LUNGS: Clear to Auscultation Heart: S1S2, no murmurs Abdomen: Soft N/T Extremities: No Edema Neurology: alert Assessment Assessment 1. elevated troponin and CK level myoglobin level elevated also - IV fluids infusing ? due to lying on floor for prolonged period troponin levels trended downward echo pending 2. fall vs syncope orthostatic with 30 mm drop in BP with standing IV fluids infusing 3. UTI/sepsis per primary service 4. influenza positive 5. HTN continue home meds 6. HLD continue home statin therapy 7. dementia per primary service 8. hypomagnesemia with hypokalemia Mg = 1.5; replete with 4 grams IV K = 3; continue IVF with KCl; given oral K after IV Mg given MANDO HORTON MD 05/11/16 1259: CARDIO Progress Notes Plan Plan Pt. seen and examined. Agree with above HOSIERY MATER note. No acute events overnight. No CP. No significant changes on exam. Continue supportive care. Await echo, if normal, ok to dc from CV perspective. KEENAN BAUTISTA APRN May 11, 2016 12:15 MANDO HORTON MD May 11, 2016 12:59
[2016-05-11] MEDS: VANCOMYCIN PER PHARMACY MC PRN (14:39)
[2016-05-11 14:53] VITALS: BP 140/83
[2016-05-11] MEDS: POTASSIUM CHLORIDE 20 MEQ TABLET.ER. PO SCH ×2 (15:50→20:52)
--- NOTE | 2016-05-11 15:51 | CARD ---
APPROVED REPORT EXAM: Two-dimensional and M-mode echocardiogram with Doppler and color Doppler. Other Information Quality : Good INDICATION Elevated Troponin 2D DIMENSIONS RVDd2.0 (2.9-3.5cm)Left Atrium(2D)3.3 (1.6-4.0cm) IVSd1.2 (0.7-1.1cm)Aortic Root(2D)2.6 (2.0-3.7cm) LVDd3.9 (3.9-5.9cm)LVOT Diameter2.0 (1.8-2.4cm) PWd1.2 (0.7-1.1cm)LVDs1.9 (2.5-4.0cm) FS (%) 30.0 %SV55.1 ml LVEF(%)60.0 (>50%) Aortic Valve AoV Peak Gucci.145.9cm/sAoV VTI24.2cm AO Peak GR.8.5mmHgLVOT VTI 19.71cm AO Mean GR.5mmHgAVA (VTI)2.50cm2 Mitral Valve MV E Trxcxeki15.8cm/sMV DECEL [id number] MV A Vxngorex48.6cm/sE/A Ratio0.7 TDI Lateral E' P. V10.94cm/sMedial E' P. V4.63cm/s E/Lateral E'5.0E/Medial E'11.8 Tricuspid Valve TR P. Fdocrsra650zi/sRAP [id number] TR Peak Gr.[id number] Pulmonary Vein S1 Mykvxujl24.4cm/sS2 Mjutxzde88.89cm/s D2 Boajqdem40.9cm/sPVa [id number] LEFT VENTRICLE The left ventricle is normal size. There is mild concentric left ventricular hypertrophy. The left ve ntricular systolic function is normal and the ejection fraction is within normal range. The Ejection Fraction is 55-60%. There is normal LV segmental wall motion. Transmitral Doppler flow pattern is Gra de I-abnormal relaxation pattern. RIGHT VENTRICLE The right ventricle is normal size. The right ventricular systolic function is normal. ATRIA The left atrium size is normal. The right atrium size is normal. The interatrial septum is intact wit h no evidence for an atrial septal defect or patent foramen ovale as noted on 2-D or Doppler imaging. AORTIC VALVE The aortic valve is calcified but opens well. Doppler and Color Flow revealed trace aortic regurgitat ion. There is no significant aortic valvular stenosis. MITRAL VALVE The mitral valve is calcified but opens well. There is mild posterior mitral annular calcification. T here is no evidence of mitral valve prolapse. There is no mitral valve stenosis. Doppler and Color-fl ow revealed trace to mild mitral regurgitation. TRICUSPID VALVE The tricuspid valve is normal in structure and function. Doppler and Color Flow revealed trace to mil d tricuspid regurgitation. The PA pressure was estimated at 31 mmHg. There is no tricuspid valve sten osis. PULMONIC VALVE Doppler and Color Flow revealed mild pulmonic valvular regurgitation. There is no pulmonic valvular s tenosis. GREAT VESSELS The aortic root is normal in size. The IVC is normal in size and collapses >50% with inspiration. PERICARDIAL EFFUSION There is no evidence of significant pericardial effusion. Critical Notification Critical Value: No <Conclusion> The left ventricular systolic function is normal and the ejection fraction is within normal range. Th e Ejection Fraction is 55-60%. There is normal LV segmental wall motion. Doppler and Color Flow revealed trace to mild tricuspid regurgitation. The PA pressure was estimated at 31 mmHg.
[2016-05-11 19:15] VITALS: BP 149/77
[2016-05-11] MEDS: VANCOMYCIN 1 GM in IV NORMAL SALINE 250ML 250 ML IV SCH (19:46)
[2016-05-11] MEDS: ACETAMINOPHEN 500 MG TABLET PO PRN (20:51)
[2016-05-11] MEDS: ATORVASTATIN CALCIUM 20 MG TABLET PO SCH (20:51)
[2016-05-11] MEDS: ALPRAZOLAM 0.5 MG TABLET PO SCH (20:52)
[2016-05-11] MEDS: DONEPEZIL HCL 5 MG TABLET. PO SCH (20:52)
[2016-05-11 23:27] VITALS: BP 135/72
[2016-05-12] MEDS: VANCOMYCIN PER PHARMACY MC PRN (02:14)
[2016-05-12 03:55] VITALS: BP 144/82
[2016-05-12 05:41] LABS: HEMATOCRIT 34.3 % (36.0-47.0); HEMOGLOBIN 11.3 g/dL (12.0-15.5); RED BLOOD COUNT 3.81 x10^6/uL (3.50-5.40); RED CELL DISTRIBUTION WIDTH 14.6 % (11.5-14.5); WHITE BLOOD COUNT 2.6 x10^3/uL (4.0-11.0)
[2016-05-12 06:06] LABS: CALCIUM 7.6 mg/dL (8.5-10.1); CREATININE 0.8 mg/dL (0.6-1.0); GFR 82.7; POTASSIUM 3.6 mmol/L (3.5-5.1)
[2016-05-12] MEDS: PIPERACILLIN/TAZOBACTAM 3.375 GM in IV NORMAL SALINE 50ML 50 ML IV SCH ×2 (06:12→13:37)
[2016-05-12] MEDS: LEVOTHYROXINE 50 MCG TABLET PO SCH (06:12)
[2016-05-12 07:54] VITALS: BP 164/86
[2016-05-12] MEDS ORDERED: VANCOMYCIN 750 MG in IV NORMAL SALINE 250ML 250 ML IV SCH (09:00)
[2016-05-12] MEDS: POTASSIUM CHLORIDE 20 MEQ TABLET.ER. PO SCH ×2 (09:07→20:44)
[2016-05-12] MEDS: OSELTAMIVIR 30 MG CAPSULE PO SCH ×2 (09:07→20:45)
[2016-05-12] MEDS: LISINOPRIL 20 MG TABLET PO SCH (09:07)
[2016-05-12] MEDS: POTASSIUM CL 20MEQ D5-0.45NACL 1,000 ML IV SCH (09:09)
--- NOTE | 2016-05-12 10:26 | PDOC ---
SUBJECTIVE Subjective She is feeling better, she is eating better she is pleasant but still somewhat disoriented OBJECTIVE Objective She had no further fever since yesterday Vital Signs Vital Signs Date Time Temp Pulse Resp B/P Pulse Ox O2 Delivery O2 Flow Rate FiO2 05/12/16 09:07 74 164/86 05/12/16 08:25 Room Air 05/12/16 07:54 97.9 68 20 164/86 96 Room Air 97.9 05/12/16 03:55 98.3 68 16 144/82 94 Room Air 98.3 05/11/16 23:27 99.0 80 18 135/72 92 Room Air 99.0 05/11/16 19:56 Room Air 05/11/16 19:15 99.5 83 18 149/77 93 Room Air 99.5 05/11/16 14:53 99.2 81 20 140/83 95 Room Air 99.2 05/11/16 10:39 99.0 93 18 167/80 93 Room Air 99.0 I & O Intake and Output 05/12/16 07:00 Intake Total 1000 ml Balance 1000 ml Intake Oral 1000 ml # Voids 8 # Bowel Movements 1 PHYSICAL EXAM Physical Exam She is currently well hydrated otherwise her exam has not changed ASSESSMENT/PLAN Assessment/Plan 1. SIRS probably due to low and dehydration her cultures has stayed negative we will stop all the antibiotic and monitor, her fever could have been due to the flu, 2. Flu. Improved 3. Confusion and metabolic encephalopathy due to fever and dehydration. This is improving 4. Rhabdomyolysis due to fall and elevated CK. The patient is being hydrated slowly and carefully, her CK continue to be elevated 5. Hypokalemia. Replacing 6. Fever and tachycardia. Improving 7. Hyperlipidemia and hypertension. 8. Previous history of breast cancer. 9. Degenerative joint disease. 10. Hypothyroidism. Continue supportive therapy, plan to increase activity, she continues afebrile likely discharge tomorrow, asked to social sciences chair to help in arranging for discharge Problems: COMMENT Lab Laboratory Tests Test 05/11/16 19:45 05/12/16 05:09 Vancomycin Level Trough 6.9mcg/mL (10.0-20.0) Vancomycin Last Dose Date 05/10/16 Vancomycin Last Dose Time 1999 White Blood Count 2.6x10^3/uL (4.0-11.0) Red Blood Count 3.81x10^6/uL (3.50-5.40) Hemoglobin 11.3g/dL (12.0-15.5) Hematocrit 34.3% (36.0-47.0) Mean Corpuscular Volume 90fL (79-100) Mean Corpuscular Hemoglobin 30pg (25-35) Mean Corpuscular Hemoglobin Concent 33g/dL (31-37) Red Cell Distribution Width 14.6% (11.5-14.5) Platelet Count 175x10^3/uL (140-400) Sodium Level 134mmol/L (136-145) Potassium Level 3.6mmol/L (3.5-5.1) Chloride Level 101mmol/L (98-107) Carbon Dioxide Level 29mmol/L (21-32) Anion Gap 4 (6-14) Blood Urea Nitrogen 2mg/dL (7-20) Creatinine 0.8mg/dL (0.6-1.0) Estimated GFR (Cockcroft-Gault) 82.7 Glucose Level 131mg/dL (70-99) Calcium Level 7.6mg/dL (8.5-10.1) COLTON ACEVES MD May 12, 2016 10:26
[2016-05-12 10:58] VITALS: BP 126/67
[2016-05-12 15:01] VITALS: BP 175/77
[2016-05-12 19:35] VITALS: BP 161/86
[2016-05-12] MEDS: ACETAMINOPHEN 500 MG TABLET PO PRN (20:44)
[2016-05-12] MEDS: DONEPEZIL HCL 5 MG TABLET. PO SCH (20:45)
[2016-05-12] MEDS: ALPRAZOLAM 0.5 MG TABLET PO SCH (20:45)
[2016-05-12 23:35] VITALS: BP 139/78
[2016-05-13 03:40] VITALS: BP 164/79
[2016-05-13 05:04] LABS: HEMATOCRIT 36.7 % (36.0-47.0); HEMOGLOBIN 11.8 g/dL (12.0-15.5); RED BLOOD COUNT 4.05 x10^6/uL (3.50-5.40); RED CELL DISTRIBUTION WIDTH 14.5 % (11.5-14.5); WHITE BLOOD COUNT 3.1 x10^3/uL (4.0-11.0)
[2016-05-13 05:47] LABS: ALBUMIN 3.2 g/dL (3.4-5.0); ALBUMIN/GLOBULIN RATIO 0.8 (1.0-1.7); CALCIUM 7.7 mg/dL (8.5-10.1); CREATININE 0.7 mg/dL (0.6-1.0); GFR 96.5; TOTAL BILIRUBIN 0.5 mg/dL (0.2-1.0); TOTAL PROTEIN 7.2 g/dL (6.4-8.2)
[2016-05-13] MEDS: LEVOTHYROXINE 50 MCG TABLET PO SCH (05:52)
[2016-05-13] MEDS: POTASSIUM CL 20MEQ D5-0.45NACL 1,000 ML IV SCH ×2 (05:53→09:40)
[2016-05-13 08:00] VITALS: BP 176/88
--- NOTE | 2016-05-13 09:21 | PDOC ---
SUBJECTIVE Subjective She is pleasant and feeling good has no new complaints today OBJECTIVE Vital Signs Vital Signs Date Time Temp Pulse Resp B/P Pulse Ox O2 Delivery O2 Flow Rate FiO2 05/13/16 08:00 98.2 77 20 176/88 96 Room Air 98.2 05/13/16 03:40 97.7 67 20 164/79 97 Room Air 97.7 05/12/16 23:35 98.3 71 18 139/78 95 Room Air 98.3 05/12/16 19:57 Room Air 05/12/16 19:35 98.1 73 18 161/86 95 Room Air 98.1 05/12/16 15:01 98.2 70 20 175/77 97 Room Air 98.2 05/12/16 10:58 97.9 80 18 126/67 95 Room Air 97.9 I & O Intake and Output 05/13/16 07:00 Intake Total 1450 ml Output Total 500 ml Balance 950 ml Intake Oral 200 ml IV Total 1250 ml Output Urine Total 500 ml # Voids 10 # Bowel Movements 4 PHYSICAL EXAM Physical Exam Lungs fairly clear Heart is regular rate Abdomen soft and nontender Extremities no edema ASSESSMENT/PLAN Assessment/Plan 1. SIRS probably due to low and dehydration . no further fever 2. Flu. Improved 3. Confusion and metabolic encephalopathy due to fever and dehydration. resolved 4. Rhabdomyolysis due to fall and elevated CK. improved clinically and lab 5. Hypokalemia. Replaced 6. Fever and tachycardia. resolved 7. Hyperlipidemia and hypertension. 8. Previous history of breast cancer. 9. Degenerative joint disease. 10. Hypothyroidism. Plan to discharge home with home health patient refused retirement Problems: COMMENT Lab Laboratory Tests Test 05/12/16 18:55 05/13/16 04:10 Magnesium Level 1.7mg/dL (1.8-2.4) White Blood Count 3.1x10^3/uL (4.0-11.0) Red Blood Count 4.05x10^6/uL (3.50-5.40) Hemoglobin 11.8g/dL (12.0-15.5) Hematocrit 36.7% (36.0-47.0) Mean Corpuscular Volume 91fL (79-100) Mean Corpuscular Hemoglobin 29pg (25-35) Mean Corpuscular Hemoglobin Concent 32g/dL (31-37) Red Cell Distribution Width 14.5% (11.5-14.5) Platelet Count 182x10^3/uL (140-400) Erythrocyte Sedimentation Rate 23 (0-25) Sodium Level 136mmol/L (136-145) Potassium Level 4.0mmol/L (3.5-5.1) Chloride Level 103mmol/L (98-107) Carbon Dioxide Level 27mmol/L (21-32) Anion Gap 6 (6-14) Blood Urea Nitrogen 1mg/dL (7-20) Creatinine 0.7mg/dL (0.6-1.0) Estimated GFR (Cockcroft-Gault) 96.5 BUN/Creatinine Ratio 1 (6-20) Glucose Level 117mg/dL (70-99) Calcium Level 7.7mg/dL (8.5-10.1) Total Bilirubin 0.5mg/dL (0.2-1.0) Aspartate Amino Transf (AST/SGOT) 96U/L (15-37) Alanine Aminotransferase (ALT/SGPT) 39U/L (14-59) Alkaline Phosphatase 38U/L (46-116) Creatine Kinase 1370U/L (26-192) Total Protein 7.2g/dL (6.4-8.2) Albumin 3.2g/dL (3.4-5.0) Albumin/Globulin Ratio 0.8 (1.0-1.7) COLTON ACEVES MD May 13, 2016 09:21
[2016-05-13] MEDS: OSELTAMIVIR 30 MG CAPSULE PO SCH (09:46)
[2016-05-13] MEDS: LISINOPRIL 20 MG TABLET PO SCH (09:47)
[2016-05-13] MEDS ORDERED: OSEL30CA PO (10:01)
--- NOTE | 2016-05-13 10:03 | PDOC3 ---
Discharge Summary* Date of Admission: May 09, 2016 Date of Discharge: May 13, 2016 Admitting Diagnosis Problems Medical Problems: (1) Confusion Status: Acute (2) Fever Status: Acute (3) Severe sepsis Status: Acute (4) Tachycardia Status: Acute Final Diagnosis 1. SIRS probably due to low and dehydration . no further fever 2. Flu. Improved 3. Confusion and metabolic encephalopathy due to fever and dehydration. resolved 4. Rhabdomyolysis due to fall and elevated CK. improved clinically and lab 5. Hypokalemia. Replaced 6. Fever and tachycardia. resolved 7. Hyperlipidemia and hypertension. 8. Previous history of breast cancer. 9. Degenerative joint disease. 10. Hypothyroidism Problems Medical Problems: (1) Confusion Status: Acute (2) Fever Status: Acute (3) Severe sepsis Status: Acute (4) Tachycardia Status: Acute CONSULTS Cardiology Procedures CXR CT head and CT cervical spine Brief Hospital Course Ms. Johnson is a 85 old [sex] who presented with [ ] Disposition/Orders: D/C to Home w/ HH CONDITION AT DISCHARGE: Improved Diet: Cardiac Scheduled Alprazolam (Alprazolam) 1 TAB PO QHS (Reported) Atorvastatin Calcium (Atorvastatin Calcium) 1 TAB PO DAILY (Reported) Donepezil Hcl (Aricept) 1 TAB PO QHS (Reported) Levothyroxine Sodium (Levothyroxine Sodium) 1 TAB PO DAILY (Reported) Lisinopril/Hydrochlorothiazide (Lisinopril-Hctz 20-12.5 Mg Tab) 1 TAB PO DAILY ( Reported) Oseltamivir Phosphate (Tamiflu) 30 MG PO BID Potassium Gluconate (Potassium Gluconate) 99 MG PO DAILY (Reported) FOLLOW UP APPOINTMENT: office 2 weeks Time Spent Total time spent with patient [] minutes for coordination of care, counseling, and education. COLTON ACEVES MD May 13, 2016 10:03
[2016-05-13 11:00] VITALS: BP 147/76
[2016-05-13 15:39] VITALS: BP 142/91
[2016-05-14] MEDS ORDERED: LEVOTHYROXINE 88 MCG TABLET PO SCH (07:00)
== END 2016-05-13 17:45 | disposition home health service (06) | DRG 871 ==
LOC: ER 15:22 → 2 NORTH 16:48
PROVIDERS: ADMIT Internal Medicine; ATTEND Internal Medicine
DX: A41.9 Sepsis, unspecified organism (principal); G93.41 Metabolic encephalopathy; M62.82 Rhabdomyolysis; N39.0 Urinary tract infection, site not specified; E03.9 Hypothyroidism, unspecified; E78.00 Pure hypercholesterolemia, unspecified; E78.5 Hyperlipidemia, unspecified; E83.42 Hypomagnesemia; E86.0 Dehydration; E87.6 Hypokalemia; F02.80 Dementia in other diseases classified elsewhere, unspecified severity, without behavioral disturbance, psychotic disturbance, mood disturbance, and anxiety; G30.9 Alzheimer's disease, unspecified; I10 Essential (primary) hypertension; I25.9 Chronic ischemic heart disease, unspecified; J11.1 Influenza due to unidentified influenza virus with other respiratory manifestations; M19.90 Unspecified osteoarthritis, unspecified site; R62.7 Adult failure to thrive; R65.20 Severe sepsis without septic shock; W19.XXXA Unspecified fall, initial encounter; F41.9 Anxiety disorder, unspecified; N63 Unspecified lump in breast; Z85.3 Personal history of malignant neoplasm of breast; I25.2 Old myocardial infarction
CPT/HCPCS: 36415; 70450; 71010; 72125; 80048; 80053; 80061; 80076; 80202; 81001; 82550; 83605; 83690; 83735; 83874; 83880; 84443; 84484; 85007; 85027; 85651; 87040; 87086; 87641; 87804; 93005; 93306; 96365; J0690; J2543; J3370; J3475; J3490; J7030; J7040; J7050; 99285-25

== ENCOUNTER 2016-10-20 02:39 | Emergency (ER) | payer BC, MEDICARE ==
[~2016-10-20 02:39] MED LIST: ALPR0.5T6 PO; ATOR20TA58 PO; DONE5TAB56 PO; LEVO50TA5 PO; LISI1TAB5 PO; OSEL30CA PO; POTA99TA3 PO
[2016-10-20] MEDS ORDERED: BISACODYL 5 MG TABLET.DR. PO PRN (04:00)
[2016-10-20] MEDS ORDERED: MAGNESIUM CITRATE 296 ML SOLUTION. PO ONE (04:15)
[2016-10-20] MEDS ORDERED: IV NORMAL SALINE 1000ML BAG 1,000 ML IV ONE (04:15)
[2016-10-20 04:53] LABS: BILIRUBIN,URINE NEGATIVE (NEG); GLUCOSE,URINE NEGATIVE (NEG); NITRITE,URINE NEGATIVE (NEG); PH,URINE 7.5; PROTEIN,URINE NEGATIVE (NEG-TRACE)
[2016-10-20 05:04] LABS: BACTERIA,URINE 0 /HPF (0-FEW); RBC,URINE OCC /HPF (0-2); SQUAMOUS EPITHELIAL CELL,UR FEW /LPF
[2016-10-20 05:14] LABS: CALCIUM 9.4 mg/dL (8.5-10.1); CREATININE 0.7 mg/dL (0.6-1.0); GFR 96.5; POTASSIUM 3.3 mmol/L (3.5-5.1)
--- NOTE | 2016-10-20 05:20 | PHYS DOC ---
Past Medical History Past Medical History: Anxiety, Cancer, Dementia, High Cholesterol, Hypertension , Hypothyroid, UTI, Other Additional Past Medical Histor: breast ca Past Surgical History: Cancer Surgery, Other Additional Past Surgical Histo: LUMPECTOMY. PT IS POOR HISTORIAN, PT SON UNSURE OF OTHER SURGERIES Alcohol Use: Sober Drug Use: Other Adult General Chief Complaint Chief Complaint: CONSTIPATION HPI HPI Patient is a 85 year old female who presents to the ER today secondary to constipation. Patient reports her last bowel movement was approximately 2 weeks ago. Patient has any fevers shakes chills. Patient has any nausea vomiting or diarrhea. Patient complaining of some abdominal discomfort. Patient has any chest pain or shortness of breath. Patient is status post cholecystectomy. Patient has any history of hypertension diabetes liver longer kidney problems. Patient reports usually she has problems with bowel movements but never 2 weeks between BMs. Patient's physical exam the ER was unremarkable. Prior my arrival the patient had a large bowel movement here in the ER. Patient's abdominal exam currently is soft nontender no rebound or guarding. Patient has no psoas or obturator signs. Patient has no tenderness at McBurney's point. ER workup consisting of a normal ejection series. There is nonspecific gas pattern no free air fluid levels. There was a significant amount of stool in the colon. She was given Dulcolax tabs as well as citrate by mouth Patient is requesting that we give her IV fluids and she feels dehydrated. She is also requesting that we check her urine to make sure she has no infection. Assessment and plan Patient clinically hemodynamically stable. Patient's UA is unremarkable with no evidence of infection. Patient's abdomen is benign. Patient's x-ray did not reveal any evidence of obstruction. We will discharge the patient home and to continue taking her mag citrate and to follow-up with her primary care physician. Patient did have a bowel movement here in the ER and is stable for discharged home for further evaluation by PCP. Review of Systems Review of Systems Constitutional: Denies fever or chills [] Eyes: Denies change in visual acuity, redness, or eye pain [] All other review systems are negative except as documented in the history of present illness portion. Current Medications Current Medications Current Medications Medications (Trade) Dose Ordered Sig/Angela Start Time Stop Time Status Last Admin Dose Admin Bisacodyl (Dulcolax Tab) 10 mg PRN DAILY PRN 6/21/17 04:00 10/20/16 04:58 10 MG Magnesium Citrate (Citroma) 296 ml 1X ONCE 10/20/16 04:15 10/20/16 04:16 DC 10/20/16 04:59 296 ML Sodium Chloride 1,000 ml @ 1,000 mls/hr 1X ONCE 10/20/16 04:15 10/20/16 05:14 DC 10/20/16 04:59 1,000 MLS/HR Allergies Allergies Allergies Coded Allergies Type Severity Reaction Last Updated Verified No Known Drug Allergies 05/09/16 No Physical Exam Physical Exam Constitutional: Well developed, well nourished, no acute distress, non-toxic appearance. [] HENT: Normocephalic, atraumatic, bilateral external ears normal, oropharynx moist, no oral exudates, nose normal. [] Eyes: PERRLA, EOMI, conjunctiva normal, no discharge. [] Neck: Normal range of motion, no tenderness, supple, no stridor. [] Cardiovascular:Heart rate regular rhythm, Lungs & Thorax: Bilateral breath sounds clear to auscultation [] Abdomen: Bowel sounds normal, soft, no tenderness, no masses, no pulsatile masses. [] Skin: Warm, dry, no erythema, no rash. [] Back: No tenderness, no CVA tenderness. [] Extremities: No tenderness, no cyanosis, no clubbing, ROM intact, no edema. [] Neurologic: Alert and oriented X 3, normal motor function, normal sensory function, no focal deficits noted. [] Psychologic: Affect normal, judgement normal, mood normal. [] Current Patient Data Lab Values Laboratory Tests Test 10/20/16 04:48 Urine Collection Type Unknown Urine Color Yellow Urine Clarity Cloudy Urine pH 7.5 Urine Specific [place] 1.010 Urine Protein Negative mg/dL (NEG-TRACE) Urine Glucose (UA) Negative mg/dL (NEG) Urine Ketones (Stick) Negative mg/dL (NEG) Urine Blood Negative (NEG) Urine Nitrite Negative (NEG) Urine Bilirubin Negative (NEG) Urine Urobilinogen Dipstick 1.0 mg/dL (0.2 mg/dL) Urine Leukocyte Esterase Trace (NEG) Urine RBC Occ /HPF (0-2) Urine WBC 1-4 /HPF (0-4) Urine Squamous Epithelial Cells Few /LPF Urine Amorphous Sediment Present /HPF Urine Bacteria 0 /HPF (0-FEW) EKG EKG [] Radiology/Procedures Radiology/Procedures [] Course & Med Decision Making Course & Med Decision Making Pertinent Labs and Imaging studies reviewed. (See chart for details) [] Dragon Disclaimer Dragon Disclaimer This electronic medical record was generated, in whole or in part, using a voice recognition dictation system. Departure Departure Impression: Primary Impression: Constipation Additional Impression: Dehydration Disposition: 01 HOME, SELF-CARE Condition: IMPROVED Referrals: COLTON ACEVES MD (PCP) Patient Instructions: Constipation, Adult Problem Qualifiers DRE BLUM MD Oct 20, 2016 05:20
[2016-10-20 06:01] VITALS: BP 160/77
--- NOTE | 2016-10-20 07:15 | RAD ---
Acute abdomen series with chest, 3 views, 10/20/2016: History: Constipation The abdominal gas pattern is unremarkable. No free air is seen in the abdomen. There is no evidence of organomegaly. Moderate scattered degenerative changes are present in the spine. The heart is mildly enlarged. There is tortuosity of the thoracic aorta. No pulmonary infiltrates are seen. IMPRESSION: No acute abdominal abnormality is detected.
== END 2016-10-20 06:00 | disposition home or self-care (01) ==
LOC: ER 02:39
DX: K59.00 Constipation, unspecified (principal); E86.0 Dehydration; Z87.440 Personal history of urinary (tract) infections; F41.9 Anxiety disorder, unspecified; E78.00 Pure hypercholesterolemia, unspecified; E03.9 Hypothyroidism, unspecified; F03.90 Unspecified dementia, unspecified severity, without behavioral disturbance, psychotic disturbance, mood disturbance, and anxiety; I10 Essential (primary) hypertension; Z90.49 Acquired absence of other specified parts of digestive tract
CPT/HCPCS: 36415; 74022; 80048; 81001; 87086; 96360; 99285; J7030

== ENCOUNTER 2020-08-16 09:37 | Emergency (ER) | payer OTHER, MEDICAID ==
[~2020-08-16] VITALS: Ht 172.7 cm; Wt 65.0 kg
[~2020-08-16 09:37] MED LIST changes: +ACET325T9 PO; +ALEN70TA3 PO; +BISA10SU55 RC; +CHOL3000 PO; +LEVO25TA4 PO; +LISI1TAB37 PO; -LISI1TAB5 PO; +LOPE2TAB27 PO; +MAG355OR31 PO; +MAGN24003 PO; +NA P133E2 RC; +POLY17PO29 PO; +PROC10TA57 RC; +VITS42.55 TP
[2020-08-16] MEDS ORDERED: IV NORMAL SALINE 1000ML BAG 1,000 ML IV ONE (10:00)
[2020-08-16 10:37] LABS: BASO % 0 % (0-3); EOS # 0.1 x10^3/uL (0.0-0.7); EOS % 1 % (0-3); HEMOGLOBIN 11.5 g/dL (12.0-15.5); LYMPH # 0.7 x10^3/uL (1.0-4.8); LYMPH % 14 % (24-48); MEAN CORPUSCULAR HEMOGLOBIN 30 pg (25-35); MEAN CORPUSCULAR HGB CONC 33 g/dL (31-37); MEAN CORPUSCULAR VOLUME 92 fL (79-100); MONO # 0.3 x10^3/uL (0.0-1.1); MONO % 7 % (0-9); NEUT # 3.7 x10^3/uL (1.8-7.7); NEUT % 77 % (31-73); PLATELET COUNT 199 x10^3/uL (140-400); RED BLOOD COUNT 3.78 x10^6/uL (3.50-5.40); RED CELL DISTRIBUTION WIDTH 14.5 % (11.5-14.5); WHITE BLOOD COUNT 4.8 x10^3/uL (4.0-11.0)
[2020-08-16 10:52] LABS: CALCIUM 8.8 mg/dL (8.5-10.1); CREATININE 0.9 mg/dL (0.6-1.0); GFR 71.5; POTASSIUM 3.3 mmol/L (3.5-5.1)
[2020-08-16 10:57] LABS: ALBUMIN 3.9 g/dL (3.4-5.0); ALBUMIN/GLOBULIN RATIO 0.9 (1.0-1.7); TOTAL BILIRUBIN 0.6 mg/dL (0.2-1.0); TOTAL PROTEIN 8.1 g/dL (6.4-8.2)
--- NOTE | 2020-08-16 11:06 | RAD ---
CT HEAD AND C-SPINE WO History: Reason: fell in the kitchen at the correction / [facility]. Instructions: / History: Pain Comparison: May 09, 2016 Technique: Noncontrast CT imaging was performed of the head and cervical spine. Coronal and sagittal reconstructions were performed. Exposure: One or more of the following individualized dose reduction techniques were utilized for thi s examination: 1. Automated exposure control 2. Adjustment of the mA and/or kV according to patient size 3. Use of iterative reconstruction technique. Findings: Mild motion degraded evaluation. Head CT: No intracranial hemorrhage. No mass effect. No hydrocephalus. Mild brain parenchymal volume loss. Moderate foci of decreased attenuation within the hemispheric whi te matter, most often due to chronic microvascular ischemia. Imaged orbits are unremarkable. Imaged paranasal sinuses and mastoid air cells are clear. No acute ca lvarial fracture. Cervical spine CT: Motion degraded evaluation of the skull base. Straightening of the normal cervical lordosis. Normal vertebral body height. No acute fracture. Multilevel degenerative disc changes and facet arthropathy most prominent C4-C5. No high-grade canal stenosis. Multilevel neuroforaminal narrowing. Soft tissues unremarkable. Impression: Head CT: 1. No acute intracranial abnormality. Cervical spine CT: 1. No acute fracture or subluxation of the cervical spine. Electronically signed by: Willard Christy DO (08/16/2020 11:03 AM) [facility]
[2020-08-16 12:19] LABS: BILIRUBIN,URINE NEGATIVE (NEG); CLARITY,URINE CLEAR; COLOR,URINE YELLOW; NITRITE,URINE NEGATIVE (NEG); PROTEIN,URINE NEGATIVE (NEG-TRACE)
[2020-08-16 12:38] LABS: BACTERIA,URINE 0 /HPF (0-FEW); RBC,URINE 0 /HPF (0-2); WBC,URINE 0 /HPF (0-4)
--- NOTE | 2020-08-16 13:39 | PHYS DOC ---
Past Medical History Past Medical History: Anxiety, Cancer, Dementia, High Cholesterol, Hypertension, Hypothyroid, UTI, Other Additional Past Medical Histor: breast ca Past Surgical History: Cancer Surgery, Other Additional Past Surgical Histo: LUMPECTOMY. PT IS POOR HISTORIAN, PT SON UNSURE OF OTHER SURGERIES Smoking Status: Never Smoker Alcohol Use: Sober Drug Use: Other General Adult EDM: Chief Complaint: ALTERED MENTAL STATUS HPI: HPI: Patient is a 89 year old female who was brought here by EMS from the residential due to altered mental status. [facility] staff reported that they took her to the diner today to have breakfast, patient slumped over in the chair, was confused and not very responsive. So EMS were called, they checked her blood sugar and it was 158. Her blood pressure was initially low. Patient says she has been falling multiple times the last few weeks, denies hitting her head. Patient denies any back pain, no abdominal pain, no chest pain, no nausea vomiting. Patient denies any hip pain, no pelvic pain, no extremity pain. Review of Systems: Review of Systems: Constitutional: Denies fever or chills. [] Eyes: Denies change in visual acuity. [] HENT: Denies nasal congestion or sore throat. [] Respiratory: Denies cough or shortness of breath. [] Cardiovascular: Denies chest pain or edema. [] GI: Denies abdominal pain, nausea, vomiting, bloody stools or diarrhea. [] : Denies dysuria. [] Musculoskeletal: Denies back pain or joint pain. [] Integument: Denies rash. [] Neurologic: Positive for generalized weakness, no headache, no neck pain. Endocrine: Denies polyuria or polydipsia. [] Lymphatic: Denies swollen glands. [] Psychiatric: Denies depression or anxiety. [] Heart Score: C/O Chest Pain: N/A Risk Factors: Risk Factors: DM, Current or recent (<one month) smoker, HTN, HLP, family history of CAD, obesity. Risk Scores: Score 0 - 3: 2.5% MACE over next 6 weeks - Discharge Home Score 4 - 6: 20.3% MACE over next 6 weeks - Admit for Clinical Observation Score 7 - 10: 72.7% MACE over next 6 weeks - Early Invasive Strategies Current Medications: Current Medications Medications (Trade) Dose Ordered Sig/Angela Start Time Stop Time Status Last Admin Dose Admin Sodium Chloride 1,000 ml @ 1,000 mls/hr 1X ONCE 08/16/20 10:00 08/16/20 10:59 DC 08/16/20 10:17 1,000 MLS/HR Allergies: Allergies: Allergies Coded Allergies Type Severity Reaction Last Updated Verified No Known Drug Allergies 05/09/16 No Physical Exam: PE: Constitutional: Well developed, well nourished, no acute distress, non-toxic appearance. [] HENT: Normocephalic, atraumatic, bilateral external ears normal, oropharynx moist, no oral exudates, nose normal. [] Eyes: PERRLA, EOMI, conjunctiva normal, no discharge. [] Neck: Normal range of motion, no tenderness, supple, no stridor. [] Cardiovascular:Heart rate regular rhythm, no murmur [] Lungs & Thorax: Bilateral breath sounds clear to auscultation [] Abdomen: Bowel sounds normal, soft, no tenderness, no masses, no pulsatile masses. [] Skin: Warm, dry, no erythema, no rash. [] Back: No tenderness, no CVA tenderness. [] Extremities: No tenderness, no cyanosis, no clubbing, ROM intact, no edema. [] Neurologic: Alert and oriented X 3, normal motor function, normal sensory function, no focal deficits noted. [] Psychologic: Affect normal, judgement normal, mood normal. [] Current Patient Data: Labs: Laboratory Tests Test 08/16/20 10:15 08/16/20 11:47 White Blood Count 4.8 x10^3/uL (4.0-11.0) Red Blood Count 3.78 x10^6/uL (3.50-5.40) Hemoglobin 11.5 g/dL (12.0-15.5) L Hematocrit 35.0 % (36.0-47.0) L Mean Corpuscular Volume 92 fL (79-100) Mean Corpuscular Hemoglobin 30 pg (25-35) Mean Corpuscular Hemoglobin Concent 33 g/dL (31-37) Red Cell Distribution Width 14.5 % (11.5-14.5) Platelet Count 199 x10^3/uL (140-400) Neutrophils (%) (Auto) 77 % (31-73) H Lymphocytes (%) (Auto) 14 % (24-48) L Monocytes (%) (Auto) 7 % (0-9) Eosinophils (%) (Auto) 1 % (0-3) Basophils (%) (Auto) 0 % (0-3) Neutrophils # (Auto) 3.7 x10^3/uL (1.8-7.7) Lymphocytes # (Auto) 0.7 x10^3/uL (1.0-4.8) L Monocytes # (Auto) 0.3 x10^3/uL (0.0-1.1) Eosinophils # (Auto) 0.1 x10^3/uL (0.0-0.7) Basophils # (Auto) 0.0 x10^3/uL (0.0-0.2) Sodium Level 141 mmol/L (136-145) Potassium Level 3.3 mmol/L (3.5-5.1) L Chloride Level 104 mmol/L (98-107) Carbon Dioxide Level 30 mmol/L (21-32) Anion Gap 7 (6-14) Blood Urea Nitrogen 13 mg/dL (7-20) Creatinine 0.9 mg/dL (0.6-1.0) Estimated GFR (Cockcroft-Gault) 71.5 BUN/Creatinine Ratio 14 (6-20) Glucose Level 139 mg/dL (70-99) H Calcium Level 8.8 mg/dL (8.5-10.1) Magnesium Level 2.0 mg/dL (1.8-2.4) Total Bilirubin 0.6 mg/dL (0.2-1.0) Aspartate Amino Transferase (AST) 16 U/L (15-37) Alanine Aminotransferase (ALT) 13 U/L (14-59) L Alkaline Phosphatase 48 U/L (46-116) Troponin I Quantitative < 0.017 ng/mL (0.000-0.055) DJ-Pba-Q-Type Natriuretic Peptide 255 pg/mL (0-449) Total Protein 8.1 g/dL (6.4-8.2) Albumin 3.9 g/dL (3.4-5.0) Albumin/Globulin Ratio 0.9 (1.0-1.7) L Urine Collection Type Unknown Urine Color Yellow Urine Clarity Clear Urine pH 7.0 (<5.0-8.0) Urine Specific [place] 1.010 (1.000-1.030) Urine Protein Negative mg/dL (NEG-TRACE) Urine Glucose (UA) Negative mg/dL (NEG) Urine Ketones (Stick) Negative mg/dL (NEG) Urine Blood Negative (NEG) Urine Nitrite Negative (NEG) Urine Bilirubin Negative (NEG) Urine Urobilinogen Dipstick 1.0 mg/dL (0.2 mg/dL) Urine Leukocyte Esterase Negative (NEG) Urine RBC 0 /HPF (0-2) Urine WBC 0 /HPF (0-4) Urine Squamous Epithelial Cells Few /LPF Urine Bacteria 0 /HPF (0-FEW) Laboratory Tests 08/16/20 10:15 Laboratory Tests 08/16/20 10:15 Vital Signs: Vital Signs Date Time Temp Pulse Resp B/P (MAP) Pulse Ox O2 Delivery O2 Flow Rate FiO2 08/16/20 12:10 81 18 155/72 (99) 97 Room Air 08/16/20 09:37 98.8 98.8 EKG: EKG: EKG was done at 947, no ST segment elevation. Sinus rhythm, heart rate of 61 bpm, prolonged QT QT of 474 MS. Radiology/Procedures: Radiology/Procedures: [][facility] [address] [place], [place] [id number] IMAGING REPORT Signed PATIENT: ADELAIDA HAMILTON ACCOUNT: [id number] : 1930 LOCATION: ER AGE: 89 SEX: F EXAM STATUS: REG ER ORD. PHYSICIAN: CELY PENA DO REASON: fell in the kitchen at the residential PROCEDURE: CT HEAD AND CERVICAL SPINE WO CT HEAD AND C-SPINE WO History: Reason: fell in the kitchen at the residential / [facility]. Instructions: / History: Pain Comparison: May 09, 2016 Technique: Noncontrast CT imaging was performed of the head and cervical spine. Coronal and sagittal reconstructions were performed. Exposure: One or more of the following individualized dose reduction techniques were utilized for this examination: 1. Automated exposure control 2. Adjustment of the mA and/or kV according to patient size 3. Use of iterative reconstruction technique. Findings: Mild motion degraded evaluation. Head CT: No intracranial hemorrhage. No mass effect. No hydrocephalus. Mild brain parenchymal volume loss. Moderate foci of decreased attenuation within the hemispheric white matter, most often due to chronic microvascular ischemia. Imaged orbits are unremarkable. Imaged paranasal sinuses and mastoid air cells are clear. No acute calvarial fracture. Cervical spine CT: Motion degraded evaluation of the skull base. Straightening of the normal cervical lordosis. Normal vertebral body height. No acute fracture. Multilevel degenerative disc changes and facet arthropathy most prominent C4-C5. No high-grade canal stenosis. Multilevel neuroforaminal narrowing. Soft tissues unremarkable. Impression: Head CT: 1. No acute intracranial abnormality. Cervical spine CT: 1. No acute fracture or subluxation of the cervical spine. Electronically signed by: Willard Christy DO (08/16/2020 11:03 AM) [facility] DICTATED and SIGNED BY: WILLARD CHRISTY DO DATE: 08/16/20 [id number] Course & Med Decision Making: Course & Med Decision Making Pertinent Labs and Imaging studies reviewed. (See chart for details) Patient is an 89-year-old female who was brought here by EMS from residential due to altered mental status. Patient blood pressure was low at the residential when EMS check, it was reported at 65/40. When they reverse Trendelenburg her, her blood pressure improved. Patient was given IV fluid here in the ER, she feel much better. Patient was awake alert oriented at the time of discharge, she was in no acute distress. Patient has a DNR order. Patient will be discharged back to the residential. Tati Disclaimer: Tati Disclaimer: This electronic medical record was generated, in whole or in part, using a voice recognition dictation system. Departure Departure Impression: Primary Impression: Syncope Disposition: 03 CUSTODIAL FACILITY Condition: IMPROVED Referrals: COLTON ACEVES MD (PCP) Patient Instructions: Syncope CELY PENA DO Aug 16, 2020 13:39
--- NOTE | 2020-08-16 14:45 | EKG ---
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
[2020-08-16 15:00] VITALS: BP 146/93
== END 2020-08-16 15:45 ==
LOC: ER 09:37
DX: R55 Syncope and collapse (principal); R41.82 Altered mental status, unspecified; F41.9 Anxiety disorder, unspecified; F03.90 Unspecified dementia, unspecified severity, without behavioral disturbance, psychotic disturbance, mood disturbance, and anxiety; E78.00 Pure hypercholesterolemia, unspecified; I10 Essential (primary) hypertension; E03.9 Hypothyroidism, unspecified; Z85.3 Personal history of malignant neoplasm of breast; Z98.890 Other specified postprocedural states; Z90.89 Acquired absence of other organs
CPT/HCPCS: 36415; 70450; 72125; 80053; 81001; 83735; 83880; 84484; 85025; 93005; 96360; 96361; 99285; J7030